=== PATIENT | female | born 1970 | race Caucasian/White ===

== ENCOUNTER 2020-10-05 08:38 | Day surgery (SDC) | payer OTHER ==
[~2020-10-05] VITALS: Ht 157.5 cm; Wt 68.0 kg
[~2020-10-05 08:38] MED LIST: ASPI-1822 PO; ATEN25TA7 PO; AZIT250T3 PO; DM H5SYR PO; FENO145T PO; LOSA50TA57 PO; METF850T PO; PIOG30TA51 PO; PRED20TA5 PO; RANI-287 PO; SIMV20TA1 PO
[2020-10-05] MEDS ORDERED: fentaNYL citrate 0.05 MG/ML VIAL ONE (12:47)
[2020-10-05] MEDS ORDERED: MIDAZOLAM 2 MG/2 ML VIAL ONE (12:47)
[2020-10-05] MEDS ORDERED: LIDOCAINE 2% 100 MG/5 ML UJET TP ONE ×2 (12:47→13:50)
[2020-10-05] MEDS ORDERED: fentaNYL citrate 0.05 MG/ML VIAL IVP ONE (13:50)
== END 2020-10-05 14:00 | disposition home or self-care (01) ==
LOC: MDS 08:38 → MFCC 11:27 → MDS 14:00
PROVIDERS: ATTEND Internal Medicine Gastroenterology
DX: Z12.11 Encounter for screening for malignant neoplasm of colon (principal); D12.8 Benign neoplasm of rectum; I10 Essential (primary) hypertension; Z79.899 Other long term (current) drug therapy
CPT/HCPCS: 45380; 87426; J3010; J2250